=== PATIENT | male | born 1995 | race Hispanic/Latino ===

== ENCOUNTER 2016-09-22 19:47 | Emergency (ER) | payer OTHER ==
--- NOTE | 2016-09-22 21:43 | EDDOCDS ---
Physician Documentation [facility] Name: Jaime Mayes Age: 21 yrs Sex: Male : 1995 Arrival Date: 09/22/2016 Time: 19:47 Bed TR8 Private MD: Other - Complete Info On Cds Disposition: 09/22/16 21:17 Discharged to Home/Self Care. Impression: Acute upper respiratory infection, unspecified, Cough. - Condition is Stable. - Discharge Instructions: Upper Respiratory Infection, Adult, Cough, Adult. - Prescriptions for Zithromax Z- Keven 250 mg Oral Tablet - take 1 tablet by ORAL route as directed for 5 days Day 1- take two tablets once. Day 2, 3, 4 , 5 take one tablet once daily.; 6 tablet. benzonatate 200 mg Oral Capsule - take 1 capsule by ORAL route 3 times per day As needed; 30 capsule. - Medication Reconciliation, Local Pharmacy Hours form. - Follow up: Emergency Department; When: As needed; Reason: Worsening of conditions. Follow up: Private Physician; When: 2 - 3 days; Reason: Wound/Symptom Recheck, Recheck today's complaints, Continuance of care. - Problem is new. - Symptoms are unchanged. Historical: - Allergies: no known allergies; - Home Meds: 1. none - PMHx: back pain; - PSHx: none; - Social history: Smoking status: Patient uses tobacco products, current every day smoker. No barriers to communication noted, The patient speaks fluent Belarusian, Speaks appropriately for age. - Family history: Not pertinent. - : The pt / caregiver states he / she is not on anticoagulants. Home medication list is obtained from the patient. - Exposure Risk Screening:: None identified. Vital Signs: 09/22 19:49 BP 112 / 69; Pulse 100; Resp 18 S; Temp 98.5(O); Pulse Ox 98% on R/A; Weight 70.31 kg / gr2 155.01 lbs (R); Height 5 ft. 0 in. (152.40 cm) (R); Pain 3/10; 21:35 BP 115 / 68; Pulse 88; Resp 18; Temp 98.7(TE); Pulse Ox 93% on R/A; Pain 0/10; jmv 19:49 Body Mass Index 30.27 (70.31 kg, 152.40 cm) gr2 MDM: 20:49 [facility] Payment Agreement was scanned into [employer] and attached to record. gb 21:05 Financial registration complete. Signatures: Susie Alamo, Reg Reg Deanna Jones,RN RN Aleksandra BarnettRN RN [facility] Gabbi Vega, COLEEN HORNE dt4 The chart was reviewed and I authenticate all verbal orders and agree with the evaluation and treatment provided.Attachments: 20:49 [place] Payment Agreement gb MTDD
--- NOTE | 2016-09-22 21:44 | EDDOCDS ---
Nurse's Notes [facility] Name: Jaime Mayes Age: 21 yrs Sex: Male : 1995 Arrival Date: 09/22/2016 Time: 19:47 Bed TR8 Private MD: Other - Complete Info On Cds Diagnosis: Acute upper respiratory infection, unspecified;Cough Presentation: 09/22 19:55 Presenting complaint: Patient states: coughing for the past 9 days. Adult Sepsis dsf Screening: The patient does not have new or worsening altered mentation. Patient's respiratory rate is less than 22. Systolic blood pressure is greater than 100. Patient has a qSOFA score of 0- Negative Sepsis Screen. Suicide/Homicide risk assessment- the patient denies having any suicidal and/or homicidal ideations and does not present with any other emotional, behavioral or mental health complaints. 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 Transition of care: patient was not received from another setting of care. 19:55 Acuity: ANGUS Level 4 dsf 19:55 Method Of Arrival: Walkin/Carried/Asstd dsf Triage Assessment: 19:56 General: Appears in no apparent distress, Behavior is appropriate for age, cooperative. dsf Pain: Denies pain. 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 Respiratory: Reports cough that is productive, since 9 days ago. Historical: - Allergies: no known allergies; - Home Meds: 1. none - PMHx: back pain; - PSHx: none; - Social history: Smoking status: Patient uses tobacco products, current every day smoker. No barriers to communication noted, The patient speaks fluent Australian, Speaks appropriately for age. - Family history: Not pertinent. - : The pt / caregiver states he / she is not on anticoagulants. Home medication list is obtained from the patient. - Exposure Risk Screening:: None identified. Screenin:41 Screening information is obtained from the patient. Fall risk: No risks identified. [facility] Assistance ADL's: requires no assistance with activities of daily living. Abuse/DV Screen: The patient / caregiver reports he/she is: not in a situation that causes fear, pain or injury. Nutritional screening: No deficits noted. Advance Directives: There is no active DNR order. home support is adequate. Assessment: 21:41 General: Appears in no apparent distress, comfortable, Behavior is appropriate for age, cjh cooperative, denies new problems or complaints, denies needs at this time, reviewed discharge instructions with patient who verbalizes understanding, encouraged and answered questions. Vital Signs: 19:49 BP 112 / 69; Pulse 100; Resp 18 S; Temp 98.5(O); Pulse Ox 98% on R/A; Weight 70.31 kg gr2 (R); Height 5 ft. 0 in. (152.40 cm) (R); Pain 3/10; 21:35 BP 115 / 68; Pulse 88; Resp 18; Temp 98.7(TE); Pulse Ox 93% on R/A; Pain 0/10; jmv 19:49 Body Mass Index 30.27 (70.31 kg, 152.40 cm) gr2 Vitals: 19:49 Log In Time: September 22, 2016 at 19:49. gr2 ED Course: 19:48 Patient visited by Sabina Soriano. gr2 19:48 Patient moved to Waiting gr2 19:49 Other - Complete Info On Cds is Private Physician. gr2 19:50 Patient visited by Sabnia Soriano. gr2 19:55 Patient moved to Pre RCE gr2 19:56 Triage Initiated dsf 20:25 Patient moved to Triage 3 cz 20:42 Patient name changed from Jaime\S\R\S\Mayes\S\ to Jaime\S\Eliot\S\Mayes. EDMS 20:49 [facility] Payment Agreement was scanned into [employer] and attached to record. gb 20:57 [facility] dt4 20:57 Néstor Potter DO is Attending Physician. dt4 20:57 Patient visited by Gabbi Vega PA-C. dt4 21:36 Patient visited by Ty Hawley PCA. jmv 21:36 Patient moved to TR8 cjh 21:41 The patient / caregiver is instructed regarding the plan of care and ED course. cjh 21:41 No IV's were initiated during this patient's visit. No procedures done that require [facility] assistance. Order Results: There are currently no results for this order. Outcome: 21:17 Discharge ordered by Provider. dt4 21:41 Discharge Assessment: Patient awake, alert and oriented x 3. No cognitive and/or cjh functional deficits noted. Patient verbalized understanding of disposition instructions. patient administered narcotics - no. The following High Risk Discharge criteria are identified: None. Discharged to home ambulatory, with family. Condition: good Condition: stable Condition: improved. Discharge instructions given to patient, Instructed on discharge instructions, follow up and referral plans. medication usage, Demonstrated understanding of instructions, medications, Pt was receptive of discharge instructions/ teaching. Prescriptions given X 1, 2. No special radiology studies were completed. Property :Personal belongings accompany Pt. 21:43 Patient left the ED. [facility] Signatures: Dispatcher [employer] EDMS Aba Rust, RN RN cz Susie Alamo, Xander Reg Deanna Jones,RN RN Aleksandra BarnettRN RN [facility] Sabina Soriano gr2 Gabbi Vega, PA-C PA-C dt4 Ty Hawley, HUGH HUSBANDRY TECHNICIAN jmv JULISSA
--- NOTE | 2016-09-24 22:44 | EDDOCDS ---
Nurse's Notes [facility] Name: Jaime Mayes Age: 21 yrs Sex: Male : 1995 Arrival Date: 09/22/2016 Time: 19:47 Bed TR8 Private MD: Other - Complete Info On Cds Diagnosis: Acute upper respiratory infection, unspecified;Cough Presentation: 09/22 19:55 Presenting complaint: Patient states: coughing for the past 9 days. Adult Sepsis dsf Screening: The patient does not have new or worsening altered mentation. Patient's respiratory rate is less than 22. Systolic blood pressure is greater than 100. Patient has a qSOFA score of 0- Negative Sepsis Screen. Suicide/Homicide risk assessment- the patient denies having any suicidal and/or homicidal ideations and does not present with any other emotional, behavioral or mental health complaints. 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 Transition of care: patient was not received from another setting of care. 19:55 Acuity: ANGUS Level 4 dsf 19:55 Method Of Arrival: Walkin/Carried/Asstd dsf Triage Assessment: 19:56 General: Appears in no apparent distress, Behavior is appropriate for age, cooperative. dsf Pain: Denies pain. 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 Respiratory: Reports cough that is productive, since 9 days ago. Historical: - Allergies: no known allergies; - Home Meds: 1. none - PMHx: back pain; - PSHx: none; - Social history: Smoking status: Patient uses tobacco products, current every day smoker. No barriers to communication noted, The patient speaks fluent [place], Speaks appropriately for age. - Family history: Not pertinent. - : The pt / caregiver states he / she is not on anticoagulants. Home medication list is obtained from the patient. - Exposure Risk Screening:: None identified. Screenin:41 Screening information is obtained from the patient. Fall risk: No risks identified. [facility] Assistance ADL's: requires no assistance with activities of daily living. Abuse/DV Screen: The patient / caregiver reports he/she is: not in a situation that causes fear, pain or injury. Nutritional screening: No deficits noted. Advance Directives: There is no active DNR order. home support is adequate. Assessment: 21:41 General: Appears in no apparent distress, comfortable, Behavior is appropriate for age, cjh cooperative, denies new problems or complaints, denies needs at this time, reviewed discharge instructions with patient who verbalizes understanding, encouraged and answered questions. Vital Signs: 19:49 BP 112 / 69; Pulse 100; Resp 18 S; Temp 98.5(O); Pulse Ox 98% on R/A; Weight 70.31 kg gr2 (R); Height 5 ft. 0 in. (152.40 cm) (R); Pain 3/10; 21:35 BP 115 / 68; Pulse 88; Resp 18; Temp 98.7(TE); Pulse Ox 93% on R/A; Pain 0/10; jmv 19:49 Body Mass Index 30.27 (70.31 kg, 152.40 cm) gr2 Vitals: 19:49 Log In Time: September 22, 2016 at 19:49. gr2 ED Course: 19:48 Patient visited by Sabina Soriano. gr2 19:48 Patient moved to Waiting gr2 19:49 Other - Complete Info On Cds is Private Physician. gr2 19:50 Patient visited by Sabina Soriano. gr2 19:55 Patient moved to Pre RCE gr2 19:56 Triage Initiated dsf 20:25 Patient moved to Triage 3 cz 20:42 Patient name changed from Jaime\S\R\S\Mayes\S\ to Jaime\S\Eliot\S\Mayes. EDMS 20:49 [facility] [place] [facility] Payment Agreement was scanned into [employer] and attached to record. gb 20:57 Gabbi Vega [facility]-C [facility] dt4 20:57 Néstor Potter DO is Attending Physician. dt4 20:57 Patient visited by Gabbi Vega PA-C. dt4 21:36 Patient visited by Ty Hawley PCA. jmv 21:36 Patient moved to TR8 cj 21:41 The patient / caregiver is instructed regarding the plan of care and ED course. [facility] 21:41 No IV's were initiated during this patient's visit. No procedures done that require [facility] assistance. 09/23 10:55 T-Sheet-- Draft Copy was scanned into [employer] and attached to record. gb Order Results: There are currently no results for this order. Outcome: 09/22 21:17 Discharge ordered by Provider. dt4 21:41 Discharge Assessment: Patient awake, alert and oriented x 3. No cognitive and/or [facility] functional deficits noted. Patient verbalized understanding of disposition instructions. patient administered narcotics - no. The following High Risk Discharge criteria are identified: None. Discharged to home ambulatory, with family. Condition: good Condition: stable Condition: improved. Discharge instructions given to patient, Instructed on discharge instructions, follow up and referral plans. medication usage, Demonstrated understanding of instructions, medications, Pt was receptive of discharge instructions/ teaching. Prescriptions given X 1, 2. No special radiology studies were completed. Property :Personal belongings accompany Pt. 21:43 Patient left the ED. [facility] Signatures: Dispatcher [employer] EDMS Aba Rust, RN RN Susie Nunez, Deanna Mon,RN RN Aleksandra BarnettRN RN [facility] Sabina Soriano gr2 Gabbi Vega PA-C PA-C dt4 Ty Hawley PCA PCA jmv Chart Complete JULISSA
--- NOTE | 2016-09-24 22:44 | EDDOCDS ---
Physician Documentation [facility] Name: Jaime Mayes Age: 21 yrs Sex: Male : 1995 Arrival Date: 09/22/2016 Time: 19:47 Bed TR8 Private MD: Other - Complete Info On Cds Disposition: 09/22/16 21:17 Discharged to Home/Self Care. Impression: Acute upper respiratory infection, unspecified, Cough. - Condition is Stable. - Discharge Instructions: Upper Respiratory Infection, Adult, Cough, Adult. - Prescriptions for Zithromax Z- Keven 250 mg Oral Tablet - take 1 tablet by ORAL route as directed for 5 days Day 1- take two tablets once. Day 2, 3, 4 , 5 take one tablet once daily.; 6 tablet. benzonatate 200 mg Oral Capsule - take 1 capsule by ORAL route 3 times per day As needed; 30 capsule. - Medication Reconciliation, Local Pharmacy Hours form. - Follow up: Emergency Department; When: As needed; Reason: Worsening of conditions. Follow up: Private Physician; When: 2 - 3 days; Reason: Wound/Symptom Recheck, Recheck today's complaints, Continuance of care. - Problem is new. - Symptoms are unchanged. Historical: - Allergies: no known allergies; - Home Meds: 1. none - PMHx: back pain; - PSHx: none; - Social history: Smoking status: Patient uses tobacco products, current every day smoker. No barriers to communication noted, The patient speaks fluent [place], Speaks appropriately for age. - Family history: Not pertinent. - : The pt / caregiver states he / she is not on anticoagulants. Home medication list is obtained from the patient. - Exposure Risk Screening:: None identified. Vital Signs: 09/22 19:49 BP 112 / 69; Pulse 100; Resp 18 S; Temp 98.5(O); Pulse Ox 98% on R/A; Weight 70.31 kg / gr2 155.01 lbs (R); Height 5 ft. 0 in. (152.40 cm) (R); Pain 3/10; 21:35 BP 115 / 68; Pulse 88; Resp 18; Temp 98.7(TE); Pulse Ox 93% on R/A; Pain 0/10; jmv 19:49 Body Mass Index 30.27 (70.31 kg, 152.40 cm) gr2 MDM: 20:49 [facility] Payment Agreement was scanned into [employer] and attached to record. gb : Financial registration complete. gb 09/23 10:55 T-Sheet-- Draft Copy was scanned into [employer] and attached to record. gb Signatures: Susie Alamo, Reg Reg Deanna JonesRN RN Aleksandra Barnett RN RN [facility] Gabbi Vega PA-C PA-C dt4 The chart was reviewed and I authenticate all verbal orders and agree with the evaluation and treatment provided.Attachments: 09/22 20:49 [facility] Payment Agreement gb 09/23 10:55 T-Sheet-- Draft Copy gb Chart Complete MTDD
--- NOTE | 2016-09-24 22:44 | EDDOCDS ---
Physician Documentation [facility] Name: Jaime Mayes Age: 21 yrs Sex: Male : 1995 Arrival Date: 09/22/2016 Time: 19:47 Bed TR8 Private MD: Other - Complete Info On Cds Disposition: 09/22/16 21:17 Discharged to Home/Self Care. Impression: Acute upper respiratory infection, unspecified, Cough. - Condition is Stable. - Discharge Instructions: Upper Respiratory Infection, Adult, Cough, Adult. - Prescriptions for Zithromax Z- Keven 250 mg Oral Tablet - take 1 tablet by ORAL route as directed for 5 days Day 1- take two tablets once. Day 2, 3, 4 , 5 take one tablet once daily.; 6 tablet. benzonatate 200 mg Oral Capsule - take 1 capsule by ORAL route 3 times per day As needed; 30 capsule. - Medication Reconciliation, Local Pharmacy Hours form. - Follow up: Emergency Department; When: As needed; Reason: Worsening of conditions. Follow up: Private Physician; When: 2 - 3 days; Reason: Wound/Symptom Recheck, Recheck today's complaints, Continuance of care. - Problem is new. - Symptoms are unchanged. Historical: - Allergies: no known allergies; - Home Meds: 1. none - PMHx: back pain; - PSHx: none; - Social history: Smoking status: Patient uses tobacco products, current every day smoker. No barriers to communication noted, The patient speaks fluent Norwegian, Speaks appropriately for age. - Family history: Not pertinent. - : The pt / caregiver states he / she is not on anticoagulants. Home medication list is obtained from the patient. - Exposure Risk Screening:: None identified. Vital Signs: 09/22 19:49 BP 112 / 69; Pulse 100; Resp 18 S; Temp 98.5(O); Pulse Ox 98% on R/A; Weight 70.31 kg / gr2 155.01 lbs (R); Height 5 ft. 0 in. (152.40 cm) (R); Pain 3/10; 21:35 BP 115 / 68; Pulse 88; Resp 18; Temp 98.7(TE); Pulse Ox 93% on R/A; Pain 0/10; jmv 19:49 Body Mass Index 30.27 (70.31 kg, 152.40 cm) gr2 MDM: 20:49 [facility] Payment Agreement was scanned into [employer] and attached to record. gb : Financial registration complete. gb 09/23 10:55 T-Sheet-- Draft Copy was scanned into [employer] and attached to record. gb Signatures: Susie Alamo, Reg Reg Deanna JonesRN RN Aleksandra Barnett RN RN [facility] Gabbi Vega PA-C PA-C dt4 The chart was reviewed and I authenticate all verbal orders and agree with the evaluation and treatment provided.Attachments: 09/22 20:49 [facility] Payment Agreement gb 09/23 10:55 T-Sheet-- Draft Copy gb Chart Complete MTDD
== END 2016-09-22 21:43 | disposition home or self-care (01) ==
LOC: M ED 19:47
DX: J06.9 Acute upper respiratory infection, unspecified (principal); R05 Cough; M54.9 Dorsalgia, unspecified; F17.200 Nicotine dependence, unspecified, uncomplicated

== ENCOUNTER → 2016-12-28 | Outpatient (REF) | payer OTHER ==
[2016-12-28 16:17] LABS: BLOOD UREA NITROGEN 16 MG/DL (7-18); CREATININE FOR GFR 1.18 MG/DL (0.70-1.30); GLOMERULAR FILTRATION RATE > 60.0 (>60)
== END ==
LOC: M LABDRAW1 15:41
PROVIDERS: ATTEND Orthopaedic Surgery
DX: M54.32 Sciatica, left side (principal)